=== PATIENT | female | born 1995 | race Caucasian/White ===

== ENCOUNTER 2019-03-04 21:42 | Emergency (ER) | payer OTHER | END 2019-03-04 23:35 | disposition home or self-care (01) | LOC: FTE 21:42 | DX: S99.921A Unspecified injury of right foot, initial encounter (principal); E11.9 Type 2 diabetes mellitus without complications; V09.29XA Pedestrian injured in traffic accident involving other motor vehicles, initial encounter; Z79.84 Long term (current) use of oral hypoglycemic drugs | CPT/HCPCS: 73630; 99283-25 ==

== ENCOUNTER 2019-04-28 22:45 | Emergency (ER) | payer OTHER ==
[2019-04-29] MEDS: HYDROCODONE/APAP (5/325) TAB PO (01:21)
== END 2019-04-29 02:44 | disposition home or self-care (01) ==
LOC: FTE 22:45
DX: S99.911A Unspecified injury of right ankle, initial encounter (principal); E11.9 Type 2 diabetes mellitus without complications; X50.1XXA Overexertion from prolonged static or awkward postures, initial encounter; Y92.9 Unspecified place or not applicable; Z79.84 Long term (current) use of oral hypoglycemic drugs
CPT/HCPCS: 29515; 73610-RT; 99283-25